=== PATIENT | female | born 1980 | race Caucasian/White ===

== ENCOUNTER → 2016-08-16 | Outpatient (CLI) | payer OTHER ==
--- NOTE | 2016-08-16 09:12 | KCIC ---
PROCEDURE Complete abdominal ultrasound. HISTORY Abdominal pain. TECHNIQUE Real-time ultrasound imaging of the abdomen is performed. COMPARISON None. FINDINGS Study is technically limited due to patient body habitus and overlying bowel gas. The IVC and aorta are obscured. The pancreas and portions of the liver are not well seen. The liver measures 17 cm in length and is increased in echogenicity. Ultrasound is not sensitive for detection of focal hepatic lesions. Portal flow is hepatopetal. The gallbladder appears normal and no gallstones or gallbladder wall thickening is seen. No pericholecystic fluid is seen. No positive Durand's sign was elicited during transducer examination of the gallbladder. No extrahepatic biliary ductal dilatation is seen and the extrahepatic bile duct measures 3 mm. The right kidney measures 12.1 cm in length and no hydronephrosis or renal mass or perinephric fluid collection is seen. The left kidney measures 11.6 cm in length and no hydronephrosis or renal mass or perinephric fluid collection is seen. The spleen measures 14 cm in length and is homogeneous in appearance. No ascites is seen. IMPRESSION 1. Technically limited exam. 2. Increased echogenicity of the liver isprobably due to fatty infiltration. 3. Mild hepatosplenomegaly. Electronically signed by: Toby Aguilar MD (Aug 16, 2016 09:10:36)
== END | disposition home or self-care (01) ==
LOC: KCIC US 07:54
PROVIDERS: ATTEND Emergency Medicine
DX: R10.9 Unspecified abdominal pain (principal); K76.0 Fatty (change of) liver, not elsewhere classified; R16.2 Hepatomegaly with splenomegaly, not elsewhere classified
CPT/HCPCS: 76700